=== PATIENT | female | born 1930 | race Caucasian/White ===

== ENCOUNTER 2017-10-31 11:31 | Inpatient (IN) | payer MEDICARE ==
[~2017-10-31] VITALS: Ht 160 cm; Wt 85.0 kg
[~2017-10-31 11:31] MED LIST: ASPI325T PO; ASPI325T24 PO; B12-1CHW INJ; CALCCHW25 PO; CALCIUM/D3; CALCTAB23 PO; CIME200 PO; CLIN1CAP6 PO; GLIM1 PO; LORTA5 PO; NIFE1TAB85 PO; OXYB5SYP PO; OXYB5TAB33 PO; PRAV80 PO; PRAV80TA PO; SYNT112T PO; TERA10CA3 PO; VITA100020 IM
[2017-10-31 12:01] VITALS: BP 99/55; PULSE 60; RESP 18; TEMP 97.8; O2SAT 91
[2017-10-31] MEDS ORDERED: GLIM1TAB PO (12:17)
[2017-10-31] MEDS ORDERED: PRAV40TA2 PO (12:17)
[2017-10-31] MEDS ORDERED: CINN500C2 PO (12:17)
[2017-10-31] MEDS ORDERED: CALC600C3 PO (12:17)
[2017-10-31] MEDS ORDERED: CYAN1000P SQ (12:17)
[2017-10-31] MEDS ORDERED: HYDR-3516 PO (12:17)
[2017-10-31] MEDS ORDERED: BIOT5TAB PO (12:17)
[2017-10-31] MEDS ORDERED: CLAR10CA3 PO (12:17)
[2017-10-31] MEDS ORDERED: ASPI-183 PO (12:17)
[2017-10-31] MEDS ORDERED: FURO20TA PO (12:17)
[2017-10-31] MEDS ORDERED: LEVO112T2 PO (12:17)
[2017-10-31] MEDS ORDERED: OXYB5TAB8 PO (12:17)
[2017-10-31] MEDS ORDERED: NIFE30TA61 PO (12:17)
[2017-10-31 12:39] VITALS: BP 101/56; PULSE 62; RESP 18; O2SAT 90
[2017-10-31 12:40] LABS: BASOPHIL # 0.4 TH/MM3 (0-0.2); BASOPHIL % 4.3 % (0.0-2.0); EOSINOPHIL # 0.1 TH/MM3 (0-0.4); EOSINOPHIL % 1.4 % (0.0-4.0); HEMATOCRIT 45.1 % (35.0-46.0); HEMOGLOBIN 14.6 GM/DL (11.6-15.3); LYMPH % 14.2 % (9.0-44.0); LYMPHOCYTE # 1.3 TH/MM3 (1.0-4.8); MEAN CELL VOLUME 89.4 FL (80.0-100.0); MEAN CORPUSCULAR HGB CONC 32.4 % (32.0-36.0); MEAN PLATELET VOLUME 9.9 FL (7.0-11.0); MONO % 6.6 % (0.0-8.0); MONOCYTE # 0.6 TH/MM3 (0-0.9); NEUT % 73.5 % (16.0-70.0); PLATELET COUNT 115 TH/MM3 (150-450); RED BLOOD COUNT 5.05 MIL/MM3 (4.00-5.30); RED CELL DISTRIBUTION WIDTH 14.3 % (11.6-17.2); WHITE BLOOD COUNT 9.4 TH/MM3 (4.0-11.0)
[2017-10-31] MEDS ORDERED: HYDROmorphone HCL PF 2 MG/ML VIAL IV PUSH ONE (12:45)
[2017-10-31] MEDS ORDERED: SODIUM CHLOR 0.9% 1000 ML INJ 1,000 ML IV ONE (12:45)
--- NOTE | 2017-10-31 12:49 | PD ---
HPI Chief Complaint: Abdominal Pain Time Seen by Provider: 12:29 Travel History International Travel<30 days: No Contact w/Intl Traveler<30days: No Traveled to known affect area: No History of Present Illness HPI This 87-year-old female is complaining of left lower quadrant pain. Been having some lower abdominal pain. She went to see Dr. Donahue and was told she had a colon infection. She was put on Keflex which she finished attending days worth yesterday. The last few days been having occasional diarrhea alternating with constipation. She has been having some left lower quadrant pain. The pain is aggravated by movement. Her appetite has been diminished. She has a history of cholecystectomy. She was treated for breast cancer 4 years ago. She had a lumpectomy followed by radiation treatment. She was told that chemotherapy was not needed at the time. She does smoke cigarettes. She drinks rarely. She says the pain she is having is quite severe. It is aggravated by getting up and moving when she sits she is pain is not too bad. The pain has been bad for the last 4 days. She lives alone [facility] Past Medical History Arthritis: Yes Asthma: No Blood Disorders: No Anxiety: No Depression: No Heart Rhythm Problems: No Cancer: Yes (BREAST) Cardiovascular Problems: No High Cholesterol: Yes Chemotherapy: No Chest Pain: No Congestive Heart Failure: No COPD: Yes Cerebrovascular Accident: No Coronary Artery Disease: Yes Diabetes: Yes Patient Takes Glucophage: No Diminished Hearing: No Endocrine: Yes Gastrointestinal Disorders: Yes GERD: Yes Genitourinary: Yes (STRESS INCONTINENCE ) Hepatitis: No Hiatal Hernia: No Hypertension: Yes Immune Disorder: No Kidney Stones: No Musculoskeletal: Yes (? LUMBAR SPINE BACK PAIN; ARTHRITIS BOTH KNEES) Neurologic: Yes (NEUROPATHY LEFT FOOT; ? RIGHT FOOT) Psychiatric: No Reproductive: No Respiratory: Yes (? COPD ) Immunizations Current: Yes Migraines: No Radiation Therapy: Yes Renal Failure: No Seizures: No Sickle Cell Disease: No Sleep Apnea: No Thyroid Disease: Yes Ulcer: Yes (GASTRIC) ?: Not Menopausal: Yes : 6 Para: 5 Miscarriage: 1 Tubal Ligation: Yes Past Surgical History Abdominal Aneurysm Repair: Yes Abdominal Surgery: Yes AICD: No Appendectomy: Yes Arteriovenous Shunt: No Cardiac Surgery: No Cholecystectomy: Yes Ear Surgery: No Endocrine Surgery: No Eye Surgery: No Genitourinary Surgery: No Gynecologic Surgery: Yes (LUMPECTOMY W/LYMPH NODE DISSECTION) Insulin Pump: No Joint Replacement: No Oral Surgery: No Pacemaker: No Thoracic Surgery: No Other Surgery: Yes (stent pacement for abdominal aortic anurism) Social History Alcohol Use: Yes (RARE) Tobacco Use: Yes (1/2 PPD) Substance Use: No Allergies-Medications (Allergen,Severity, Reaction): Coded Allergies: benazepril (Unverified Allergy, Severe, angioedema, 10/31/17) captopril (Unverified Allergy, Severe, angioedema, 10/31/17) enalaprilat (Unverified Allergy, Severe, angioedema, 10/31/17) fosinopril (Unverified Allergy, Severe, angioedema, 10/31/17) furosemide (Verified Allergy, Severe, VOMITING, 10/31/17) lisinopril (Unverified Allergy, Severe, SWELLING OF TONGUE, 10/31/17) PATIENT UNABLE TO TAKE ANY OTHER MEDICATION IN SAME FAMILY LISINOPRIL metformin (Verified Allergy, Severe, NAUSEA, 10/31/17) quinapril (Unverified Allergy, Severe, angioedema, 10/31/17) diclofenac (Unverified Allergy, Intermediate, Swelling, 10/31/17) PATIENT UNSURE WHICH NSAID CAUSED TONGUE SWELLING etodolac (Unverified Allergy, Intermediate, Swelling, 10/31/17) PATIENT UNSURE WHICH NSAID CAUSED TONGUE SWELLING flurbiprofen (Unverified Allergy, Intermediate, Swelling, 10/31/17) PATIENT UNSURE WHICH NSAID CAUSED TONGUE SWELLING ibuprofen (Unverified Allergy, Intermediate, Swelling, 10/31/17) PATIENT UNSURE WHICH NSAID CAUSED TONGUE SWELLING indomethacin (Unverified Allergy, Intermediate, Swelling, 10/31/17) PATIENT UNSURE WHICH NSAID CAUSED TONGUE SWELLING ketoprofen (Unverified Allergy, Intermediate, Swelling, 10/31/17) PATIENT UNSURE WHICH NSAID CAUSED TONGUE SWELLING ketorolac (Unverified Allergy, Intermediate, Swelling, 10/31/17) PATIENT UNSURE WHICH NSAID CAUSED TONGUE SWELLING morphine (Unverified Allergy, Intermediate, ITCHING, 10/31/17) PT DENIES naproxen (Unverified Allergy, Intermediate, Swelling, 10/31/17) PATIENT UNSURE WHICH NSAID CAUSED TONGUE SWELLING ondansetron (Unverified Allergy, Intermediate, ITCHING, 10/31/17) PT DENIES oxaprozin (Unverified Allergy, Intermediate, Swelling, 10/31/17) PATIENT UNSURE WHICH NSAID CAUSED TONGUE SWELLING Reported Meds & Prescriptions Reported Meds & Active Scripts Active Reported Pravastatin 40 Mg Tab 40 Mg PO DAILY Ditropan (Oxybutynin Chloride) 5 Mg Tab 5 Mg PO Q12HR Nifedipine ER 24 HR (Nifedipine) 30 Mg Tab 30 Mg PO DAILY Claritin (Loratadine) 10 Mg Cap 10 Mg PO DAILY Levothyroxine (Levothyroxine Sodium) 112 Mcg Tab 112 Mcg PO DAILY Glimepiride 1 Mg Tab 1 Mg PO DAILY Take with breakfast or first main meal Furosemide 20 Mg Tab 20 Mg PO DAILY Cyanocobalamin Inj (Cyanocobalamin) 1,000 Mcg/Ml Inj 1,000 Mcg SQ Q30D Eql Cinnamon (Cinnamon) 500 Mg Cap 1,000 Mg PO DAILY Calcium 600 + Vit D 400 Softgl (Calcium Carbonate/Vitamin D3) 600 Mg-400 Capsule 1 Cap PO DAILY Biotin 5 Mg Tab 5 Mg PO DAILY Aspirin 325 Mg Tab 325 Mg PO DAILY Hydrocodone-Acetamin 5-325 mg (Hydrocodone/Acetaminophen) 5 Mg-325 Mg Tablet 1- 2 Tab PO Q4HR PRN Review of Systems General / Constitutional: No: Fever, Chills Eyes: No: Diploplia, Blurred Vision HENT: No: Headaches Cardiovascular: No: Chest Pain or Discomfort, Palpitations Gastrointestinal: Positive: Nausea, Abdominal Pain, No: Vomiting Genitourinary: No: Urgency, Frequency Musculoskeletal: No: Myalgias Neurologic: Positive: Weakness Hematologic/Lymphatic: No: Easy Bruising Physical Exam Narrative GENERAL: Elderly female SKIN: Focused skin assessment warm/dry. HEAD: Atraumatic. Normocephalic. EYES: Pupils equal and round. No scleral icterus. No injection or drainage. ENT: No nasal bleeding or discharge. Mucous membranes pink and moist. NECK: Trachea midline. No JVD. CARDIOVASCULAR: Regular rate and rhythm. No murmur appreciated. RESPIRATORY: No accessory muscle use. Clear to auscultation. Breath sounds equal bilaterally. GASTROINTESTINAL: Abdomen soft, there is left lower quadrant tenderness with some local guarding nondistended. Hepatic and splenic margins not palpable. MUSCULOSKELETAL: No obvious deformities. No clubbing. No cyanosis. No edema. NEUROLOGICAL: Awake and alert. No obvious cranial nerve deficits. Motor grossly within normal limits. Normal speech. PSYCHIATRIC: Appropriate mood and affect; insight and judgment normal. Data Data Last Documented VS Vital Signs Date Time Temp Pulse Resp B/P (MAP) Pulse Ox O2 Delivery O2 Flow Rate FiO2 10/31/17 14:05 56 18 104/46 (65) 97 Nasal Cannula 2.00 10/31/17 12:01 97.8 Orders Orders Complete Blood Count With Diff (10/31/17 12:17) Comprehensive Metabolic Panel (10/31/17 12:17) Urinalysis - C+S If Indicated (10/31/17 12:17) Iv Access Insert/Monitor (10/31/17 12:17) Oxygen Administration (10/31/17 12:17) Oximetry (10/31/17 12:17) Lipase (10/31/17 12:17) Ct Abd/Pel W Iv Contrast(Rout) (10/31/17 12:44) Sodium Chlor 0.9% 1000 Ml Inj (Ns 1000 M (10/31/17 12:45) Hydromorphone Pf Inj (Dilaudid Pf Inj) (10/31/17 12:45) Potassium Chlor 10 Meq Premix (Kcl 10 Me (10/31/17 13:30) Iohexol 350 Inj (Omnipaque 350 Inj) (10/31/17 13:27) Admit Order (Ed Use Only) (10/31/17 14:55) Labs Laboratory Tests Test 10/31/17 12:30 White Blood Count 9.4 TH/MM3 Red Blood Count 5.05 MIL/MM3 Hemoglobin 14.6 GM/DL Hematocrit 45.1 % Mean Corpuscular Volume 89.4 FL Mean Corpuscular Hemoglobin 29.0 PG Mean Corpuscular Hemoglobin Concent 32.4 % Red Cell Distribution Width 14.3 % Platelet Count 115 TH/MM3 Mean Platelet Volume 9.9 FL Neutrophils (%) (Auto) 73.5 % Lymphocytes (%) (Auto) 14.2 % Monocytes (%) (Auto) 6.6 % Eosinophils (%) (Auto) 1.4 % Basophils (%) (Auto) 4.3 % Neutrophils # (Auto) 7.0 TH/MM3 Lymphocytes # (Auto) 1.3 TH/MM3 Monocytes # (Auto) 0.6 TH/MM3 Eosinophils # (Auto) 0.1 TH/MM3 Basophils # (Auto) 0.4 TH/MM3 CBC Comment DIFF FINAL Differential Comment Blood Urea Nitrogen 16 MG/DL Creatinine 1.00 MG/DL Random Glucose 150 MG/DL Total Protein 6.2 GM/DL Albumin 2.9 GM/DL Calcium Level 9.1 MG/DL Alkaline Phosphatase 78 U/L Aspartate Amino Transf (AST/SGOT) 17 U/L Alanine Aminotransferase (ALT/SGPT) 16 U/L Total Bilirubin 0.4 MG/DL Sodium Level 139 MEQ/L Potassium Level 3.2 MEQ/L Chloride Level 101 MEQ/L Carbon Dioxide Level 30.7 MEQ/L Anion Gap 7 MEQ/L Estimat Glomerular Filtration Rate 53 ML/MIN Lipase 62 U/L MDM Medical Decision Making Medical Screen Exam Complete: Yes Emergency Medical Condition: Yes Medical Record Reviewed: Yes Differential Diagnosis Differential diagnosis includes diverticulitis, gastroenteritis colitis Narrative Course Hemoglobin is 14 6 with a white count of 9.4. Lipase is 62. A CT scan was obtained. There is a low-density mass in the pancreatic body measuring approximately 3.8 cm this is suspicious for pancreatic neoplasm. There is a small volume of free fluid in the abdomen and pelvis along with stranding within the omentum suspicious for peritoneal disease. No liver lesions are noted. The pancreatic lesion encases and narrows the splenic artery and occludes the splenic vein. There is also a complex lesion coming from the right kidney. Patient was discussed with Dr. Banegas who feels she would be better served at the [facility]. She will be transferred there Diagnosis Primary Impression: Pancreatic mass Additional Impression: Abdominal pain Admitting Information Admitting Physician Requests: Admit Aleksandr Garner MD October 31, 2017 12:49
[2017-10-31 12:54] LABS: CHLORIDE 101 MEQ/L (98-107); SODIUM (NA) 139 MEQ/L (136-145)
[2017-10-31 12:57] LABS: CALCIUM 9.1 MG/DL (8.5-10.1)
[2017-10-31 12:58] LABS: ALBUMIN 2.9 GM/DL (3.4-5.0); BICARBONATE 30.7 MEQ/L (21.0-32.0); BLOOD UREA NITROGEN 16 MG/DL (7-18); GLUCOSE,RANDOM 150 MG/DL (74-106)
[2017-10-31 13:01] LABS: ALT (GPT) 16 U/L (10-53); AST (GOT) 17 U/L (15-37); GLOMERULAR FILTRATION RATE 53 ML/MIN (>89)
[2017-10-31 13:02] LABS: TOTAL BILIRUBIN ADULT 0.4 MG/DL (0.2-1.0); TOTAL PROTEIN 6.2 GM/DL (6.4-8.2)
[2017-10-31 13:04] LABS: ALKALINE PHOSPHATASE 78 U/L (45-117)
[2017-10-31] MEDS ORDERED: IOHEXOL 350 MG/ML 10 ML VIAL (for RAD DIAG) IVCONTRAST ONE (13:27)
[2017-10-31] MEDS ORDERED: POTASSIUM CHLOR 10 MEQ PREMIX 100 ML IV ONE (13:30)
--- NOTE | 2017-10-31 13:49 | RADRPT ---
EXAM DATE: 10/31/2017 1:30 PM EDT AGE/SEX: 87 years / Female INDICATIONS: Left lower quadrant pain. CLINICAL DATA: This is the patient's initial encounter. Patient reports that signs and symptoms have been present for 1 week and indicates a pain score of 5/10. MEDICAL/SURGICAL HISTORY: Carcinoma, breast. Gastroesophageal reflux disease. Hypertension. Diabetes. Abdominal aortic aneurysm repair. Cholecystectomy. Tubal ligation. Appendectomy. Orthop edic surgery. ORAL CONTRAST: No oral contrast ingested. RADIATION DOSE: 20.31 CTDI (mGy) COMPARISON: No prior [place] exams available for comparison. TECHNIQUE: Multiple contiguous axial images were obtained through the abdomen and pelvis following b olus infusion of 85 ml Omnipaque 350 (iohexol) nonionic water-soluble contrast as a single exam dos e. No oral contrast ingested. Using automated exposure control and adjustment of the mA and/or kV ac cording to patient size, the radiation dose was kept as low as reasonably achievable to obtain optima l diagnostic quality images. FINDINGS: Lower chest: No acute abnormality is identified. Hepatobiliary: No focal liver lesion is identified. The appearance suggests some degree of steatosis. The gallbladder is absent. Central intrahepatic bile ducts are mildly dilated and the distal common bile duct measures 11 mm. Kidneys: There is no hydronephrosis. A hyperdense heterogeneous 2 cm lesion arises from the right mid kidney at the anterior cortex. It does not meet criteria for a simple cyst. There is renal scarring at the lower pole the right kidney. A 5 mm nonobstructing stone is present in the left upper pole col lecting system. Adrenal Glands: Within normal limits. Spleen: Within normal limits. Pancreas: The pancreas is abnormal with a low-density masslike area in the proximal body measuring ap proximately 3.8 x 3.4 cm. The more peripheral pancreas is mildly atrophic with mild enlargement of th e peripheral duct. This abnormal low density encases the splenic artery and may occlude the splenic v ein. Vascular: There is severe atherosclerotic disease of the abdominal aorta. A endoluminal stent graft i s present extending from the juxtarenal position into the common iliac arteries bilaterally. The aneu rysm sac measures up to 6.7 x 6.0 cm and demonstrates areas of high density which appear to represent calcification. As described above, there is a pancreas mass which encases the splenic artery and lik farida occludes the splenic vein. There are perigastric collateral blood vessels present. Bowel/Mesentery: Stomach and small bowel demonstrate no acute finding. No acute colon abnormality is seen. There is a small volume of free fluid within the abdomen and pelvis and there is stranding of t he omentum. Abdominal Wall: No hernia is visualized. Retroperitoneum: No lymphadenopathy. Bladder: No wall thickening or mass. Reproductive: There is a small simple appearing cystic lesion in the left ovary measuring 12 mm. Uter us and right ovary demonstrate no acute finding. Inguinal: No lymphadenopathy or hernia. Musculoskeletal: No acute osseous abnormality is identified. There are degenerative changes of the chacho mbar spine with mild dextroscoliosis. CONCLUSION: 1. There is a low-density mass within the pancreatic body measuring approximately 3.8 cm. The imagin g features are suspicious for a pancreatic neoplasm. There is associated small volume of free fluid i n the abdomen and pelvis along with stranding within the omentum suspicious for peritoneal disease. N o liver lesions are identified. 2. The pancreas lesion is encasing and narrowing the splenic artery and occluding the splenic vein. As a result, there are perigastric collateral blood vessels. 3. Arising from the right mid kidney is a complex 2 cm lesion representing either a complex cystic l esion or solid mass/neoplasm. At some point this ideally should be further characterized. 4. Nonacute findings include severe atherosclerotic disease with prior endoluminal stent graft treat ment of an abdominal aortic aneurysm, 5 mm nonobstructing left renal stone, and mild enlargement of t he common bile duct in this patient post cholecystectomy. Electronically signed by: Tejinder Polo MD 10/31/2017 1:48 PM EDT
[2017-10-31 14:05] VITALS: BP 104/46; PULSE 56; RESP 18; O2SAT 97
[2017-10-31 15:30] VITALS: BP 103/56; PULSE 60; PULSE 82; RESP 18; O2SAT 95
[2017-10-31] MEDS ORDERED: NALOXONE HCL 0.4 MG/ML AMP IV PUSH PRN (16:00)
[2017-10-31] MEDS ORDERED: ACETAMINOPHEN 325 MG TAB PO PRN (16:00)
[2017-10-31] MEDS ORDERED: BISACODYL 10 MG SUPP RECTAL PRN (16:00)
[2017-10-31] MEDS ORDERED: SODIUM CHLORIDE 0.9% FLUSH 10 ML FLUSH IV FLUSH PRN (16:00)
[2017-10-31] MEDS ORDERED: MAGNESIUM HYDROXIDE SUSP 30 ML CUP PO PRN (16:00)
[2017-10-31] MEDS ORDERED: DEXTROSE 50% IN WATER 50 ML VIAL(D50) IV PUSH PRN (16:45)
[2017-10-31] MEDS ORDERED: HYDROmorphone HCL PF 0.5 MG/0.5 ML SYRINGE IV PUSH PRN (16:45)
[2017-10-31] MEDS ORDERED: GLUCAGON 1 MG/ML VIAL OTHER PRN (16:45)
[2017-10-31] MEDS: INSULIN ASPART SUPPLEMENTAL SCALE SQ SCH ×2 (17:00→20:07)
--- NOTE | 2017-10-31 17:18 | HHI.HP ---
HPI Service [facility] Hospitalists Primary Care Physician Gaby Donahue MD Admission Diagnosis ABDOMINAL PAIN, PANCREATIC MASS Chief Complaint: abd pain, constipation, decreased appetite Travel History International Travel<30 Days: No Contact w/Intl Traveler <30 Da: No Traveled to Known Affected Are: No History of Present Illness This 87-year-old female is complaining of left lower quadrant pain for the last 4 days she went to see Dr. Donahue and was told she had a colon infection. She was put on Keflex which she finished yesterday. She reportedly saw Dr. Donahue in his office this morning and was sent to the ER for further evaluation and CT scan. The last few days been having occasional diarrhea alternating with constipation. She has been having some left lower quadrant pain with no vomiting, but less appetite. The pain is aggravated by movement. She has a history of cholecystectomy. She was treated for breast cancer 4 years ago. She had a lumpectomy followed by radiation treatment. She was told that chemotherapy was not needed at the time. She does smoke cigarettes and has done so for nearly 70 years. She drinks rarely. She says the pain she is having is quite severe at times but seems controlled with Dilaudid she received earlier. It is aggravated by getting up and moving when she sits she is pain is not too bad. The pain has been bad for the last 4 days. She lives alone. CT abdomen pelvis done earlier today revealed 3.8 cm mass in the body of the pancreas narrowing splenic artery and occluding the splenic vein with some perigastric vessel engorgement. It is been requested the patient be transferred to the main hospital for further assessment. She has a long family history of various cancers. Review of Systems Constitutional: COMPLAINS OF: Fatigue, Weight loss, Change in appetite Eyes: DENIES: Blurred vision, Diplopia, Eye inflammation, Eye pain, Vision loss , Photosensitivity, Double Vision Ears, nose, mouth, throat: DENIES: Tinnitus, Hearing loss, Vertigo, Nasal discharge, Oral lesions, Throat pain, Hoarseness, Ear Pain, Running Nose, Epistaxis, Sinus Pain, Toothache, Odynophagia Respiratory: DENIES: Apneas, Cough, Snoring, Wheezing, Hemoptysis, Sputum production, Shortness of breath Cardiovascular: DENIES: Chest pain, Palpitations, Syncope, Dyspnea on Exertion , PND, Lower Extremity Edema, Orthopnea, Claudication Gastrointestinal: COMPLAINS OF: Abdominal pain, Constipation, Diarrhea, Nausea , DENIES: Black stools, Bloody stools, BRB per rectum, GERD, Reflux, Vomiting, Difficulty Swallowing, Anorexia, See HPI Musculoskeletal: COMPLAINS OF: Joint pain Hematologic/lymphatic: DENIES: Bruising, Lymphadenopathy Immunologic/allergic: DENIES: Eczema, Urticaria Psychiatric: COMPLAINS OF: Anxiety Past Family Social History Past Medical History Right-sided breast cancer Long-term tobacco use Diabetes type II with neuropathy Gastric ulcer Hypercholesterolemia GERD Hypertension Hypothyroidism Chronic lumbar pain Abdominal aortic aneurysm Coronary artery disease Overactive bladder Past Surgical History Cholecystectomy in her 30s Bilateral tubal ligation Appendectomy Right breast lumpectomy with lymph node dissection Abdominal aortic aneurysm repair with endograft stent Reported Medications Pravastatin 40 Mg Tab 40 Mg PO DAILY Ditropan (Oxybutynin Chloride) 5 Mg Tab 5 Mg PO Q12HR Nifedipine ER 24 HR (Nifedipine) 30 Mg Tab 30 Mg PO DAILY Claritin (Loratadine) 10 Mg Cap 10 Mg PO DAILY Levothyroxine (Levothyroxine Sodium) 112 Mcg Tab 112 Mcg PO DAILY Glimepiride 1 Mg Tab 1 Mg PO DAILY Take with breakfast or first main meal Furosemide 20 Mg Tab 20 Mg PO DAILY Cyanocobalamin Inj (Cyanocobalamin) 1,000 Mcg/Ml Inj 1,000 Mcg SQ Q30D Eql Cinnamon (Cinnamon) 500 Mg Cap 1,000 Mg PO DAILY Calcium 600 + Vit D 400 Softgl (Calcium Carbonate/Vitamin D3) 600 Mg-400 Capsule 1 Cap PO DAILY Biotin 5 Mg Tab 5 Mg PO DAILY Aspirin 325 Mg Tab 325 Mg PO DAILY Hydrocodone-Acetamin 5-325 mg (Hydrocodone/Acetaminophen) 5 Mg-325 Mg Tablet 1- 2 Tab PO Q4HR PRN Allergies: Coded Allergies: benazepril (Unverified Allergy, Severe, angioedema, 10/31/17) captopril (Unverified Allergy, Severe, angioedema, 10/31/17) enalaprilat (Unverified Allergy, Severe, angioedema, 10/31/17) fosinopril (Unverified Allergy, Severe, angioedema, 10/31/17) furosemide (Verified Allergy, Severe, VOMITING, 10/31/17) lisinopril (Unverified Allergy, Severe, SWELLING OF TONGUE, 10/31/17) PATIENT UNABLE TO TAKE ANY OTHER MEDICATION IN SAME FAMILY LISINOPRIL metformin (Verified Allergy, Severe, NAUSEA, 10/31/17) quinapril (Unverified Allergy, Severe, angioedema, 10/31/17) diclofenac (Unverified Allergy, Intermediate, Swelling, 10/31/17) PATIENT UNSURE WHICH NSAID CAUSED TONGUE SWELLING etodolac (Unverified Allergy, Intermediate, Swelling, 10/31/17) PATIENT UNSURE WHICH NSAID CAUSED TONGUE SWELLING flurbiprofen (Unverified Allergy, Intermediate, Swelling, 10/31/17) PATIENT UNSURE WHICH NSAID CAUSED TONGUE SWELLING ibuprofen (Unverified Allergy, Intermediate, Swelling, 10/31/17) PATIENT UNSURE WHICH NSAID CAUSED TONGUE SWELLING indomethacin (Unverified Allergy, Intermediate, Swelling, 10/31/17) PATIENT UNSURE WHICH NSAID CAUSED TONGUE SWELLING ketoprofen (Unverified Allergy, Intermediate, Swelling, 10/31/17) PATIENT UNSURE WHICH NSAID CAUSED TONGUE SWELLING ketorolac (Unverified Allergy, Intermediate, Swelling, 10/31/17) PATIENT UNSURE WHICH NSAID CAUSED TONGUE SWELLING morphine (Unverified Allergy, Intermediate, ITCHING, 10/31/17) PT DENIES naproxen (Unverified Allergy, Intermediate, Swelling, 10/31/17) PATIENT UNSURE WHICH NSAID CAUSED TONGUE SWELLING ondansetron (Unverified Allergy, Intermediate, ITCHING, 10/31/17) PT DENIES oxaprozin (Unverified Allergy, Intermediate, Swelling, 10/31/17) PATIENT UNSURE WHICH NSAID CAUSED TONGUE SWELLING Family History Mother and sister had ovarian cancer Brother had lung cancer Sister had breast cancer Daughter had thyroid cancer Father of abdominal aortic aneurysm at age 73 Social History Smokes half pack cigarettes per day and has done so for 70 years Rarely drinks alcohol Lives alone and is a since 1998 Had 5 children with a son who is local in [place] Worked for [employer] at [employer] and retired in 1994 Physical Exam Vital Signs Vital Signs Date Time Temp Pulse Resp B/P (MAP) Pulse Ox O2 Delivery O2 Flow Rate FiO2 10/31/17 15:53 Nasal Cannula 2.00 10/31/17 15:30 60 18 103/56 (72) 95 Nasal Cannula 2.00 10/31/17 14:05 56 18 104/46 (65) 97 Nasal Cannula 2.00 10/31/17 13:42 18 10/31/17 12:39 94 Nasal Cannula 2.00 10/31/17 12:39 62 18 101/56 (71) 90 Room Air 10/31/17 12:01 97.8 60 18 99/55 (70) 91 Physical Exam GENERAL: This is a well-nourished, well-developed patient, in no apparent distress. Slightly anxious. SKIN: No rashes, ecchymoses or lesions. Cool and dry. HEAD: Atraumatic. Normocephalic. No temporal or scalp tenderness. EYES: Pupils equal round and reactive. Extraocular motions intact. No scleral icterus. No injection or drainage. ENT: Nose without bleeding, purulent drainage or septal hematoma. Throat without erythema, tonsillar hypertrophy or exudate. Uvula midline. Airway patent. NECK: Trachea midline. No JVD or lymphadenopathy. Supple, nontender, no meningeal signs. CARDIOVASCULAR: Regular rate and rhythm without murmurs, gallops, or rubs. RESPIRATORY: Clear to auscultation. Breath sounds equal bilaterally. No wheezes , rales, or rhonchi. GASTROINTESTINAL: Abdomen soft, nondistended. No hepato-splenomegaly. No guarding or rebound. Tenderness palpation over left lower quadrant. No obvious bruit. MUSCULOSKELETAL: Extremities without clubbing, cyanosis, or edema. No joint tenderness, effusion, or edema noted. No calf tenderness. NEUROLOGICAL: Awake and alert. Cranial nerves II through XII intact. Motor and sensory grossly within normal limits. Five out of 5 muscle strength in all muscle groups. Normal speech. Laboratory Laboratory Tests Test 10/31/17 12:30 10/31/17 16:40 White Blood Count 9.4 Red Blood Count 5.05 Hemoglobin 14.6 Hematocrit 45.1 Mean Corpuscular Volume 89.4 Mean Corpuscular Hemoglobin 29.0 Mean Corpuscular Hemoglobin Concent 32.4 Red Cell Distribution Width 14.3 Platelet Count 115 Mean Platelet Volume 9.9 Neutrophils (%) (Auto) 73.5 Lymphocytes (%) (Auto) 14.2 Monocytes (%) (Auto) 6.6 Eosinophils (%) (Auto) 1.4 Basophils (%) (Auto) 4.3 Neutrophils # (Auto) 7.0 Lymphocytes # (Auto) 1.3 Monocytes # (Auto) 0.6 Eosinophils # (Auto) 0.1 Basophils # (Auto) 0.4 CBC Comment DIFF FINAL Differential Comment Blood Urea Nitrogen 16 Creatinine 1.00 Random Glucose 150 Total Protein 6.2 Albumin 2.9 Calcium Level 9.1 Alkaline Phosphatase 78 Aspartate Amino Transf (AST/SGOT) 17 Alanine Aminotransferase (ALT/SGPT) 16 Total Bilirubin 0.4 Sodium Level 139 Potassium Level 3.2 Chloride Level 101 Carbon Dioxide Level 30.7 Anion Gap 7 Estimat Glomerular Filtration Rate 53 Lipase 62 Result Diagram: 10/31/17 1230 10/31/17 1230 Imaging Last 72 hours Impressions Abdomen/Pelvis CT 10/31/17 1244 Signed Impressions: CONCLUSION: 1. There is a low-density mass within the pancreatic body measuring approximat farida 3.8 cm. The imaging features are suspicious for a pancreatic neoplasm. Ther e is associated small volume of free fluid in the abdomen and pelvis along with stranding within the omentum suspicious for peritoneal disease. No liver lesio ns are identified. 2. The pancreas lesion is encasing and narrowing the splenic artery and occlud ing the splenic vein. As a result, there are perigastric collateral blood vesse ls. 3. Arising from the right mid kidney is a complex 2 cm lesion representing eit her a complex cystic lesion or solid mass/neoplasm. At some point this ideally should be further characterized. 4. Nonacute findings include severe atherosclerotic disease with prior endolum inal stent graft treatment of an abdominal aortic aneurysm, 5 mm nonobstructing left renal stone, and mild enlargement of the common bile duct in this patient post cholecystectomy. Caprini VTE Risk Assessment Caprini VTE Risk Assessment: Mod/High Risk (score >= 2) Caprini Risk Assessment Model Point Value = 1 Point Value = 2 Point Value = 3 Point Value = 5 Age 41-60 Minor surgery BMI > 25 kg/m2 Swollen legs Varicose veins or History of unexplained or recurrent spontaneous Oral contraceptives or hormone replacement Sepsis (< 1 month) Serious lung disease, including pneumonia (< 1 month) Abnormal pulmonary function Acute myocardial infarction Congestive heart failure (< 1 month) History of inflammatory bowel disease Medical patient at bed rest Age 61-74 Arthroscopic surgery Major open surgery (> 45 min) Laparoscopic surgery (> 45 min) Malignancy Confined to bed (> 72 hours) Immobilizing plaster cast Central venous access Age >= 75 History of VTE Family history of VTE Factor V Leiden Prothrombin [id number] Lupus anticoagulant Anticardiolipin antibodies Elevated serum homocysteine Heparin-induced thrombocytopenia Other congenital or acquired thrombophilia Stroke (< 1 month) Elective arthroplasty Hip, pelvis, or leg fracture Acute spinal cord injury (< 1 month) Prophylaxis Regimen Total Risk Factor Score Risk Level Prophylaxis Regimen 0-1 Low Early ambulation 2 Moderate Order ONE of the following: *Sequential Compression Device (SCD) *Heparin 5000 units SQ BID 3-4 Higher Order ONE of the following medications: *Heparin 5000 units SQ TID *Enoxaparin/Lovenox 40 mg SQ daily (WT < 150 kg, CrCl > 30 mL/min) *Enoxaparin/Lovenox 30 mg SQ daily (WT < 150 kg, CrCl > 10-29 mL/min) *Enoxaparin/Lovenox 30 mg SQ BID (WT < 150 kg, CrCl > 30 mL/min) AND/OR *Sequential Compression Device (SCD) 5 or more Highest Order ONE of the following medications: *Heparin 5000 units SQ TID (Preferred with Epidurals) *Enoxaparin/Lovenox 40 mg SQ daily (WT < 150 kg, CrCl > 30 mL/min) *Enoxaparin/Lovenox 30 mg SQ daily (WT < 150 kg, CrCl > 10-29 mL/min) *Enoxaparin/Lovenox 30 mg SQ BID (WT < 150 kg, CrCl > 30 mL/min) AND *Sequential Compression Device (SCD) Assessment and Plan Problem List: (1) Pancreatic mass ICD Codes: K86.9 - Disease of pancreas, unspecified Status: Acute Plan: Transfer to [facility] and have GI see patient per apparent GI request Continue pain medication. Labs ordered. Possible malignancy. Patient is aware. (2) Hypertension ICD Codes: I10 - Essential (primary) hypertension Status: Chronic Plan: Continue medication as tolerated (3) Hyperlipidemia ICD Codes: E78.5 - Hyperlipidemia, unspecified Status: Chronic Plan: Outpatient medication. Likely not of significance acutely. (4) GERD (gastroesophageal reflux disease) ICD Codes: K21.9 - Gastro-esophageal reflux disease without esophagitis Status: Chronic Plan: Continue PPI (5) Diabetes with neurologic complications ICD Codes: E11.49 - Type 2 diabetes mellitus with other diabetic neurological complication Status: Chronic Plan: Diabetic diet with insulin sliding scale coverage Code Status Full Discussed Condition With Patient and ER provider as well as Dr. Briseno Physician Certification 2 Midnight Certification Type: Admission for Inpatient Services Order for Inpatient Services The services are ordered in accordance with Medicare regulations or non- Medicare payer requirements, as applicable. In the case of services not specified as inpatient-only, they are appropriately provided as inpatient services in accordance with the 2-midnight benchmark. Estimated LOS (days): 3 days is the estimated time the patient will need to remain in the hospital, assuming treatment plan goals are met and no additional complications. Post-Hospital Plan: Not yet determined Problem Qualifiers (1) Hypertension: Qualified Codes: I10 - Essential (primary) hypertension (2) Diabetes with neurologic complications: Misael Okeefe MD PhD October 31, 2017 17:18
[2017-10-31 20:00] VITALS: BP 128/60; PULSE 55; RESP 20; TEMP 97.4; O2SAT 92
[2017-10-31] MEDS: DOCUSATE SODIUM 50 MG/SENNA 8.6 MG TAB PO SCH (21:00)
[2017-10-31] MEDS: OXYBUTYNIN CHLORIDE 5 MG TAB PO SCH (21:01)
[2017-10-31] MEDS: SODIUM CHLORIDE 0.9% FLUSH 10 ML FLUSH IV FLUSH SCH (21:01)
[2017-10-31] MEDS: ACETAMINOPHEN/HYDROcodone 325 MG/5 MG TAB PO PRN (21:09)
[2017-10-31 21:34] LABS: CARCINOEMBRYONIC ANTIGEN 3.3 NG/ML (0.2-5.0)
[2017-11-01] VITALS (8 sets, daily range): BP systolic 105–126; BP diastolic 53–56; PULSE 51–94; RESP 16–22; TEMP 97.7–98.2; O2SAT 90–95
[2017-11-01 01:58] LABS: CA 19-9 828.1 U/ML (0.0-35.0)
[2017-11-01] MEDS: ACETAMINOPHEN/HYDROcodone 325 MG/5 MG TAB PO PRN ×3 (03:09→18:27)
[2017-11-01] MEDS: LEVOTHYROXINE SODIUM 112 MCG TAB PO SCH (05:27)
[2017-11-01] MEDS: INSULIN ASPART SUPPLEMENTAL SCALE SQ SCH ×5 (08:00→21:00)
[2017-11-01] MEDS: SODIUM CHLORIDE 0.9% FLUSH 10 ML FLUSH IV FLUSH SCH ×2 (08:12→21:32)
[2017-11-01] MEDS: LORATADINE 10 MG TAB PO SCH (08:13)
[2017-11-01] MEDS: DOCUSATE SODIUM 50 MG/SENNA 8.6 MG TAB PO SCH ×2 (08:13→21:32)
[2017-11-01] MEDS: OXYBUTYNIN CHLORIDE 5 MG TAB PO SCH ×2 (08:13→21:32)
[2017-11-01] MEDS: PANTOPRAZOLE SOD 40 MG DELAYED RELEASE TAB PO SCH (08:13)
[2017-11-01] MEDS: NIFEdipine 30 MG SUSTAINED RELEASE TAB PO SCH (08:13)
[2017-11-01 08:28] LABS: AUTOMATED NEUTROPHIL # 4.7 TH/MM3 (1.8-7.7); BASOPHIL # 0.1 TH/MM3 (0-0.2); BASOPHIL % 0.9 % (0.0-2.0); EOSINOPHIL # 0.2 TH/MM3 (0-0.4); EOSINOPHIL % 2.8 % (0.0-4.0); HEMATOCRIT 43.9 % (35.0-46.0); HEMOGLOBIN 14.5 GM/DL (11.6-15.3); LYMPH % 22.5 % (9.0-44.0); LYMPHOCYTE # 1.6 TH/MM3 (1.0-4.8); MEAN CELL VOLUME 89.5 FL (80.0-100.0); MEAN CORPUSCULAR HEMOGLOBIN 29.7 PG (27.0-34.0); MEAN CORPUSCULAR HGB CONC 33.1 % (32.0-36.0); MEAN PLATELET VOLUME 9.8 FL (7.0-11.0); MONO % 7.5 % (0.0-8.0); MONOCYTE # 0.5 TH/MM3 (0-0.9); NEUT % 66.3 % (16.0-70.0); PLATELET COUNT 105 TH/MM3 (150-450); RED CELL DISTRIBUTION WIDTH 14.7 % (11.6-17.2); WHITE BLOOD COUNT 7.1 TH/MM3 (4.0-11.0)
[2017-11-01 08:58] LABS: ALBUMIN 2.7 GM/DL (3.4-5.0); ALT (GPT) 16 U/L (10-53); AST (GOT) 20 U/L (15-37); BICARBONATE 31.4 MEQ/L (21.0-32.0); BLOOD UREA NITROGEN 11 MG/DL (7-18); CALCIUM 8.4 MG/DL (8.5-10.1); CHLORIDE 103 MEQ/L (98-107); CREATININE 0.83 MG/DL (0.50-1.00); GLOMERULAR FILTRATION RATE 65 ML/MIN (>89); GLUCOSE,RANDOM 91 MG/DL (74-106); SODIUM (NA) 142 MEQ/L (136-145)
[2017-11-01 09:01] LABS: ALKALINE PHOSPHATASE 75 U/L (45-117); TOTAL BILIRUBIN ADULT 0.5 MG/DL (0.2-1.0); TOTAL PROTEIN 5.6 GM/DL (6.4-8.2)
--- NOTE | 2017-11-01 09:05 | PD.CONS ---
HPI History of Present Illness This is a 87 year old F with PMH significant for R sided breast cancer S/P lumpectomy and radiation, DM, gastric ulcer, hyperlipidemia, GERD, HTN, hypothyroidism, chronic lumbar pain, AAA, CAD, overactive bladder, and significant family history for multiple types of cancer. Pt reports seeing her PCP a few weeks ago for a pressure in her groins, states she was started on ten days of Keflex for a "colon infection" which she finished last Monday. Pt states on Monday morning she began having a pain in her LLQ which was exacerbated by movement and bowel movements. Her bowel movements have been alternating between constipation and diarrhea since starting the Keflex, states she did take Dulcolax once for the constipation but denies any other OTC treatments. She went back to see her PCP yesterday who told her to go to the ER for further work up. CT scan in the ER revealed mass within the pancreatic body , pancreas lesion encasing and narrowing the splenic aretery and occluding the splenic vein with perigastric collateral blood vessels. Our service has been consulted to further evaluate. Denies nausea, vomiting, acid reflux, heartburn , abdominal pain other than the pains in her LLQ, unintentional weight loss, blood in her stool. States her last EGD and colonoscopy were done here, records reviewed found EGD and colonoscopy from 2002, findings revealed possible distal esophageal stricture S/P dilatation, severe nodularity and erythema in the stomach, and one polyp in the rectum. Reports rare ETOH, only on special occasions. Spoke half a pack of cigarettes daily, has been spoking since 17 years old. Denies illicit drug use. (Nadia Lopez) PFSH Past Medical History R sided breast cancer S/P lumpectomy and radiation Long-term tobacco use DM Neuropathy Gastritis Colon polyp HTN Hypothyroidism AAA CAD Overactive bladder Hyperlipidemia Past Surgical History Appendectomy Cholecystectomy Lumpectomy AAA repair with endograft stent Tubal ligation Colonoscopy EGD Rectum repair after giving (Nadia Lopez) Coded Allergies: benazepril (Unverified Allergy, Severe, angioedema, 10/31/17) captopril (Unverified Allergy, Severe, angioedema, 10/31/17) enalaprilat (Unverified Allergy, Severe, angioedema, 10/31/17) fosinopril (Unverified Allergy, Severe, angioedema, 10/31/17) furosemide (Verified Allergy, Severe, VOMITING, 10/31/17) lisinopril (Unverified Allergy, Severe, SWELLING OF TONGUE, 10/31/17) PATIENT UNABLE TO TAKE ANY OTHER MEDICATION IN SAME FAMILY LISINOPRIL metformin (Verified Allergy, Severe, NAUSEA, 10/31/17) quinapril (Unverified Allergy, Severe, angioedema, 10/31/17) diclofenac (Unverified Allergy, Intermediate, Swelling, 10/31/17) PATIENT UNSURE WHICH NSAID CAUSED TONGUE SWELLING etodolac (Unverified Allergy, Intermediate, Swelling, 10/31/17) PATIENT UNSURE WHICH NSAID CAUSED TONGUE SWELLING flurbiprofen (Unverified Allergy, Intermediate, Swelling, 10/31/17) PATIENT UNSURE WHICH NSAID CAUSED TONGUE SWELLING ibuprofen (Unverified Allergy, Intermediate, Swelling, 10/31/17) PATIENT UNSURE WHICH NSAID CAUSED TONGUE SWELLING indomethacin (Unverified Allergy, Intermediate, Swelling, 10/31/17) PATIENT UNSURE WHICH NSAID CAUSED TONGUE SWELLING ketoprofen (Unverified Allergy, Intermediate, Swelling, 10/31/17) PATIENT UNSURE WHICH NSAID CAUSED TONGUE SWELLING ketorolac (Unverified Allergy, Intermediate, Swelling, 10/31/17) PATIENT UNSURE WHICH NSAID CAUSED TONGUE SWELLING morphine (Unverified Allergy, Intermediate, ITCHING, 10/31/17) PT DENIES naproxen (Unverified Allergy, Intermediate, Swelling, 10/31/17) PATIENT UNSURE WHICH NSAID CAUSED TONGUE SWELLING ondansetron (Unverified Allergy, Intermediate, ITCHING, 10/31/17) PT DENIES oxaprozin (Unverified Allergy, Intermediate, Swelling, 10/31/17) PATIENT UNSURE WHICH NSAID CAUSED TONGUE SWELLING Family History Family history significant for multiple types of cancer including breast, lung, ovarian, and thyroid Social History ETOH only on special occasional Smokes 1/2 PPD- smoking since 17 years old Denies illicit drug use (Nadia Lopez) Review of Systems Gastrointestinal: COMPLAINS OF: Abdominal pain, Constipation, Diarrhea, DENIES : Black stools, Bloody stools, Nausea, Vomiting, Difficulty Swallowing, Odynophagia, Swelling of Abdomen, Heartburn, Hematemesis (Nadia Lopez) GI Exam Vitals I&O Vital Signs Date Time Temp Pulse Resp B/P (MAP) Pulse Ox O2 Delivery O2 Flow Rate FiO2 11/01/17 04:00 97.7 58 20 125/53 (77) 92 11/01/17 00:00 97.8 53 22 115/54 (74) 95 10/31/17 20:00 97.4 55 20 128/60 (82) 92 10/31/17 17:31 10/31/17 15:53 Nasal Cannula 2.00 10/31/17 15:30 60 18 103/56 (72) 95 Nasal Cannula 2.00 10/31/17 14:05 56 18 104/46 (65) 97 Nasal Cannula 2.00 10/31/17 13:42 18 10/31/17 12:39 94 Nasal Cannula 2.00 10/31/17 12:39 62 18 101/56 (71) 90 Room Air 10/31/17 12:01 97.8 60 18 99/55 (70) 91 I/O 10/31/17 10/31/17 10/31/17 11/01/17 11/01/17 11/01/17 07:00 15:00 23:00 07:00 15:00 23:00 Intake Total 100 ml 180 ml Output Total 150 ml Balance -50 ml 180 ml Intake Oral 180 ml IV Total 100 ml Output Urine Total 150 ml # Voids 2 3 Imaging Last Impressions Abdomen/Pelvis CT 10/31/17 1244 Signed Impressions: CONCLUSION: 1. There is a low-density mass within the pancreatic body measuring approximat farida 3.8 cm. The imaging features are suspicious for a pancreatic neoplasm. Ther e is associated small volume of free fluid in the abdomen and pelvis along with stranding within the omentum suspicious for peritoneal disease. No liver lesio ns are identified. 2. The pancreas lesion is encasing and narrowing the splenic artery and occlud ing the splenic vein. As a result, there are perigastric collateral blood vesse ls. 3. Arising from the right mid kidney is a complex 2 cm lesion representing eit her a complex cystic lesion or solid mass/neoplasm. At some point this ideally should be further characterized. 4. Nonacute findings include severe atherosclerotic disease with prior endolum inal stent graft treatment of an abdominal aortic aneurysm, 5 mm nonobstructing left renal stone, and mild enlargement of the common bile duct in this patient post cholecystectomy. Laboratory Test 10/31/17 12:30 10/31/17 16:40 11/01/17 07:50 White Blood Count 9.4 TH/MM3 7.1 TH/MM3 Red Blood Count 5.05 MIL/MM3 4.90 MIL/MM3 Hemoglobin 14.6 GM/DL 14.5 GM/DL Hematocrit 45.1 % 43.9 % Mean Corpuscular Volume 89.4 FL 89.5 FL Mean Corpuscular Hemoglobin 29.0 PG 29.7 PG Mean Corpuscular Hemoglobin Concent 32.4 % 33.1 % Red Cell Distribution Width 14.3 % 14.7 % Platelet Count 115 TH/MM3 105 TH/MM3 Mean Platelet Volume 9.9 FL 9.8 FL Neutrophils (%) (Auto) 73.5 % 66.3 % Lymphocytes (%) (Auto) 14.2 % 22.5 % Monocytes (%) (Auto) 6.6 % 7.5 % Eosinophils (%) (Auto) 1.4 % 2.8 % Basophils (%) (Auto) 4.3 % 0.9 % Neutrophils # (Auto) 7.0 TH/MM3 4.7 TH/MM3 Lymphocytes # (Auto) 1.3 TH/MM3 1.6 TH/MM3 Monocytes # (Auto) 0.6 TH/MM3 0.5 TH/MM3 Eosinophils # (Auto) 0.1 TH/MM3 0.2 TH/MM3 Basophils # (Auto) 0.4 TH/MM3 0.1 TH/MM3 CBC Comment DIFF FINAL DIFF FINAL Differential Comment Blood Urea Nitrogen 16 MG/DL Creatinine 1.00 MG/DL Random Glucose 150 MG/DL Total Protein 6.2 GM/DL Albumin 2.9 GM/DL Calcium Level 9.1 MG/DL Alkaline Phosphatase 78 U/L Aspartate Amino Transf (AST/SGOT) 17 U/L Alanine Aminotransferase (ALT/SGPT) 16 U/L Total Bilirubin 0.4 MG/DL Sodium Level 139 MEQ/L Potassium Level 3.2 MEQ/L Chloride Level 101 MEQ/L Carbon Dioxide Level 30.7 MEQ/L Anion Gap 7 MEQ/L Estimat Glomerular Filtration Rate 53 ML/MIN Lipase 62 U/L Tumor Marker Alpha Fetoprotein 2.7 NG/ML Carcinoembryonic Antigen 3.3 NG/ML CA 19-9 Antigen 828.1 U/ML Physical Examination HEENT: Normocephalic; atraumatic CHEST: Even/unlabored CARDIAC: RRR ABDOMEN: Round, soft, LLQ tenderness, bowel sounds active EXTREMITIES: No clubbing, cyanosis, or edema. SKIN: Normal; no rash; no jaundice. CHANNELING MACHINE RUNNER: Alert and oriented times three. (Nadia Lopez) Assessment and Plan Plan Assessment: - Pancreatic mass seen on imaging with elevated CA 19-9 CT abdomen and pelvis W IV contrast (10/31) --> There is a low-density mass within the pancreatic body measuring approximately 3.8 cm. The imaging features are suspicious for a pancreatic neoplasm. There is associated small volume of free fluid in the abdomen and pelvis along with stranding within the omentum suspicious for peritoneal disease. No liver lesions are identified. The pancreas lesion is encasing and narrowing the splenic artery and occluding the splenic vein. As a result, there are perigastric collateral blood vessels. Arising from the right mid kidney is a complex 2 cm lesion representing either a complex cystic lesion or solid mass/ neoplasm. At some point this ideally should be further characterized. CA 19-9- 828.1 CEA-3.3 Rare ETOH. Smoke 1/2 PPD, has been smoking since 17 years old. Denies history of pancreatitis. Family history significant for multiple types of cancer. Complaining of: Alternating constipation and diarrhea, LLQ abdominal pain worse with BMs and movement Denies: Abdominal pain other than LLQ, nausea, vomiting, acid reflux, heartburn, unintentional weight loss Plan: EUS with FNA tomorrow Obtain consent NPO after MN GS consult Monitor labs Supportive care Further recommendations based on findings of above Pt has been seen and examined by myself and Dr. Rosales and this note is written on his behalf (Nadia Lopez) Physician Comments Seen and examined with JON, Still with groin discomfort. EUS planned for tomorrow. Colonoscopy monday.Thank you (Quoc Rosales MD) Nadia Lopez November 01, 2017 09:05 Quoc Rosales MD November 01, 2017 16:19
--- NOTE | 2017-11-01 10:52 | HHI.PR ---
Subjective Remarks in chair no distress Objective Vitals heent neg heart reg lung cta abd s/nt/ ext no edema Vital Signs Date Time Temp Pulse Resp B/P (MAP) Pulse Ox O2 Delivery O2 Flow Rate FiO2 11/01/17 09:50 93 21 11/01/17 08:00 98.0 51 18 116/55 (75) 91 11/01/17 04:00 97.7 58 20 125/53 (77) 92 11/01/17 00:00 97.8 53 22 115/54 (74) 95 10/31/17 20:00 97.4 55 20 128/60 (82) 92 10/31/17 17:31 10/31/17 15:53 Nasal Cannula 2.00 10/31/17 15:30 60 18 103/56 (72) 95 Nasal Cannula 2.00 10/31/17 14:05 56 18 104/46 (65) 97 Nasal Cannula 2.00 10/31/17 13:42 18 10/31/17 12:39 94 Nasal Cannula 2.00 10/31/17 12:39 62 18 101/56 (71) 90 Room Air 10/31/17 12:01 97.8 60 18 99/55 (70) 91 Result Diagram: 11/01/17 0750 11/01/17 0750 Imaging Last 72 hours Impressions Abdomen/Pelvis CT 10/31/17 1244 Signed Impressions: CONCLUSION: 1. There is a low-density mass within the pancreatic body measuring approximat farida 3.8 cm. The imaging features are suspicious for a pancreatic neoplasm. Ther e is associated small volume of free fluid in the abdomen and pelvis along with stranding within the omentum suspicious for peritoneal disease. No liver lesio ns are identified. 2. The pancreas lesion is encasing and narrowing the splenic artery and occlud ing the splenic vein. As a result, there are perigastric collateral blood vesse ls. 3. Arising from the right mid kidney is a complex 2 cm lesion representing eit her a complex cystic lesion or solid mass/neoplasm. At some point this ideally should be further characterized. 4. Nonacute findings include severe atherosclerotic disease with prior endolum inal stent graft treatment of an abdominal aortic aneurysm, 5 mm nonobstructing left renal stone, and mild enlargement of the common bile duct in this patient post cholecystectomy. A/P Problem List: (1) Pancreatic mass ICD Codes: K86.9 - Disease of pancreas, unspecified Status: Acute Plan: 1. 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 right kidney mass could be solid vs cystic long discussion with pt. She wants to proceed with EUS and bx for diagnosis. She realizes that it will be nonoperable and likely comfort care pain control dvt prophylaxis CT abd/pelvis 10/31 1. There is a low-density mass within the pancreatic body measuring approximately 3.8 cm. The imaging features are suspicious for a pancreatic neoplasm. There is associated small volume of free fluid in the abdomen and pelvis along with stranding within the omentum suspicious for peritoneal disease. No liver lesions are identified. 2. The pancreas lesion is encasing and narrowing the splenic artery and occluding the splenic vein. As a result, there are perigastric collateral blood vessels. 3. Arising from the right mid kidney is a complex 2 cm lesion representing either a complex cystic lesion or solid mass/neoplasm. At some point this ideally should be further characterized. 4. Nonacute findings include severe atherosclerotic disease with prior endoluminal stent graft treatment of an abdominal aortic aneurysm, 5 mm nonobstructing left renal stone, and mild enlargement of the common bile duct in this patient post cholecystectomy. 2. dm 2 3. gerd 4. htn 5. hypothyroidism 6. 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
[2017-11-01] MEDS ORDERED: LACTATED RINGER'S 1000 ML IV PRN (11:15)
[2017-11-01] MEDS ORDERED: CHLORHEXIDINE GLUCONATE 2 % 1 PACK (2 CLOTHS) TOPICAL PRN (11:15)
[2017-11-01] MEDS ORDERED: SODIUM CHLORID 0.9% 500 ML IV PRN (11:15)
[2017-11-01] MEDS ORDERED: METOPROLOL TARTRATE 25 MG TAB PO PRN (11:15)
[2017-11-01] MEDS ORDERED: POVIDONE IODINE 5% (ANTISEPSIS KIT) 4 APPLICATIONS EACH NARE PRN (11:15)
[2017-11-01 13:32] LABS: PROTHROMBIN TIME - PATIENT 9.8 SEC (9.8-11.6)
--- NOTE | 2017-11-01 13:48 | EKG ---
Date Performed: 11/01/2017 Time Performed: 12:02:20 PTAGE: 87 years EKG: SINUS BRADYCARDIA BORDERLINE ECG PREVIOUS TRACING : 07/22/2013 13.15 DOCTOR: Ambrose Warner Interpretating Date/Time 11/01/2017 13:47:47
[2017-11-01 14:26] LABS: BILIRUBIN, URINE NEG (NEG); BLOOD, URINE NEG (NEG); GLUCOSE,URINE NEG (NEG); KETONE, URINE NEG (NEG); NITRITE,URINE NEG (NEG); PH, URINE 6.5 (5.0-8.5); SQUAMOUS EPITHELIAL CELL URINE 5 /hpf (0-5); TRANSITIONAL EPI CELLS, URINE <1 /hpf; URINE COLOR YELLOW (YELLW/STRAW); URINE LEUKOCYTE ESTERASE SMALL (NEG)
[2017-11-02] VITALS (8 sets, daily range): BP systolic 112–140; BP diastolic 56–63; PULSE 48–66; RESP 16–19; TEMP 97–98.2; O2SAT 92–98
[2017-11-02] MEDS: LEVOTHYROXINE SODIUM 112 MCG TAB PO SCH (06:34)
[2017-11-02 07:07] LABS: AUTOMATED NEUTROPHIL # 5.1 TH/MM3 (1.8-7.7); BASOPHIL # 0.1 TH/MM3 (0-0.2); BASOPHIL % 0.8 % (0.0-2.0); EOSINOPHIL # 0.2 TH/MM3 (0-0.4); EOSINOPHIL % 2.5 % (0.0-4.0); HEMATOCRIT 43.9 % (35.0-46.0); HEMOGLOBIN 14.3 GM/DL (11.6-15.3); LYMPH % 17.9 % (9.0-44.0); LYMPHOCYTE # 1.3 TH/MM3 (1.0-4.8); MEAN CELL VOLUME 90.2 FL (80.0-100.0); MEAN CORPUSCULAR HEMOGLOBIN 29.4 PG (27.0-34.0); MEAN CORPUSCULAR HGB CONC 32.6 % (32.0-36.0); MEAN PLATELET VOLUME 10.4 FL (7.0-11.0); MONO % 7.4 % (0.0-8.0); MONOCYTE # 0.5 TH/MM3 (0-0.9); NEUT % 71.4 % (16.0-70.0); PLATELET COUNT 109 TH/MM3 (150-450); RED BLOOD COUNT 4.87 MIL/MM3 (4.00-5.30); RED CELL DISTRIBUTION WIDTH 14.3 % (11.6-17.2); WHITE BLOOD COUNT 7.1 TH/MM3 (4.0-11.0)
[2017-11-02 07:17] LABS: BICARBONATE 28.5 MEQ/L (21.0-32.0); CALCIUM 8.8 MG/DL (8.5-10.1); CREATININE 1.04 MG/DL (0.50-1.00)
[2017-11-02] MEDS: INSULIN ASPART SUPPLEMENTAL SCALE SQ SCH ×4 (07:30→21:16)
[2017-11-02] MEDS: DOCUSATE SODIUM 50 MG/SENNA 8.6 MG TAB PO SCH ×3 (07:59→21:15)
[2017-11-02] MEDS: NIFEdipine 30 MG SUSTAINED RELEASE TAB PO SCH (07:59)
[2017-11-02] MEDS: SODIUM CHLORIDE 0.9% FLUSH 10 ML FLUSH IV FLUSH SCH ×2 (08:00→21:15)
[2017-11-02] MEDS: OXYBUTYNIN CHLORIDE 5 MG TAB PO SCH ×2 (08:07→21:15)
[2017-11-02] MEDS: PANTOPRAZOLE SOD 40 MG DELAYED RELEASE TAB PO SCH (08:07)
[2017-11-02] MEDS: LORATADINE 10 MG TAB PO SCH (08:07)
[2017-11-02] MEDS: ACETAMINOPHEN/HYDROcodone 325 MG/5 MG TAB PO PRN ×3 (08:08→16:13)
--- NOTE | 2017-11-02 10:47 | PD.PROCEDR ---
GI Procedure PROCEDURE PERFORMED EUS with FNA INDICATION FOR PROCEDURE Pancreatic mass PROCEDURE: The procedure, risks and benefits were discussed with Patient/POA and informed consent was obtained. Anesthesia sedated Patient with Diprivan. Patient was placed in the left lateral decubitus position. Endoscopic ultrasound: The Pentax videoscope was introduced through the oropharynx and advanced to the second portion of the duodenum. FINDINGS: There was a ill-defined hypoechoic mass mainly in the pancreatic body that seems to be invading the splenic vein FNA was performed with good return No obvious lymphadenopathy was noted ESTIMATED BLOOD LOSS: None SPECIMENS REMOVED: Fine-needle aspiration of the pancreatic body mass COMPLICATIONS: None IMPRESSION: Pancreatic mass seems to be invading the vascular structures PLAN: Await biopsies Supportive care Mahesh Lopez MD November 02, 2017 10:47
[2017-11-02] MEDS ORDERED: PROPOFOL 200 MG/20 ML AMP IV ONE (12:00)
[2017-11-02] MEDS ORDERED: LIDOCAINE HCL 1% PF 5 ML SYRINGE OTHER ONE (12:00)
--- NOTE | 2017-11-02 13:38 | HHI.DCPOC ---
Discharge Care Plan Diagnosis: (1) Pancreatic mass (2) Diabetes with neurologic complications (3) GERD (gastroesophageal reflux disease) (4) Hyperlipidemia (5) Hypertension (6) Abdominal pain Goals to Promote Your Health - Resume your Lasix on 11/04/17 as long as your blood pressure is over 120 systolic - Appt scheduled for 11/07/17 @ 10:00AM at [facility] in [place] with Dr. Lopez for pathology results from the biopsy - Followup with Dr. Jacobsen in 2 weeks, call for an appt. - Followup with your PCP, Dr. Donahue, in 1 week, call for an appt Directions to Meet Your Goals Take your medications as prescribed Follow your dietary instruction Follow activity as directed Keep your appointments as scheduled Take your immunizations and boosters as scheduled If your symptoms worsen call your PCP, if no PCP go to Urgent Care Center or Emergency Room Smoking is Dangerous to Your Health. Avoid second hand smoke Call the 24-hour hour crisis hotline for domestic abuse at Ella Valencia November 02, 2017 13:38
--- NOTE | 2017-11-02 15:17 | PD.CONS ---
[facility] Service General Surgery Consult Requested By Dr. Okeefe Reason for Consult Pancreatic mass Primary Care Physician Gaby Donahue MD History of Present Illness 87 yo F with LLQ abdominal pain x 4 days found to have pancreatic mass. Past Family Social History Allergies: Coded Allergies: benazepril (Unverified Allergy, Severe, angioedema, 10/31/17) captopril (Unverified Allergy, Severe, angioedema, 10/31/17) enalaprilat (Unverified Allergy, Severe, angioedema, 10/31/17) fosinopril (Unverified Allergy, Severe, angioedema, 10/31/17) furosemide (Verified Allergy, Severe, VOMITING, 10/31/17) lisinopril (Unverified Allergy, Severe, SWELLING OF TONGUE, 10/31/17) PATIENT UNABLE TO TAKE ANY OTHER MEDICATION IN SAME FAMILY LISINOPRIL metformin (Verified Allergy, Severe, NAUSEA, 10/31/17) quinapril (Unverified Allergy, Severe, angioedema, 10/31/17) diclofenac (Unverified Allergy, Intermediate, Swelling, 10/31/17) PATIENT UNSURE WHICH NSAID CAUSED TONGUE SWELLING etodolac (Unverified Allergy, Intermediate, Swelling, 10/31/17) PATIENT UNSURE WHICH NSAID CAUSED TONGUE SWELLING flurbiprofen (Unverified Allergy, Intermediate, Swelling, 10/31/17) PATIENT UNSURE WHICH NSAID CAUSED TONGUE SWELLING ibuprofen (Unverified Allergy, Intermediate, Swelling, 10/31/17) PATIENT UNSURE WHICH NSAID CAUSED TONGUE SWELLING indomethacin (Unverified Allergy, Intermediate, Swelling, 10/31/17) PATIENT UNSURE WHICH NSAID CAUSED TONGUE SWELLING ketoprofen (Unverified Allergy, Intermediate, Swelling, 10/31/17) PATIENT UNSURE WHICH NSAID CAUSED TONGUE SWELLING ketorolac (Unverified Allergy, Intermediate, Swelling, 10/31/17) PATIENT UNSURE WHICH NSAID CAUSED TONGUE SWELLING morphine (Unverified Allergy, Intermediate, ITCHING, 10/31/17) PT DENIES naproxen (Unverified Allergy, Intermediate, Swelling, 10/31/17) PATIENT UNSURE WHICH NSAID CAUSED TONGUE SWELLING ondansetron (Unverified Allergy, Intermediate, ITCHING, 10/31/17) PT DENIES oxaprozin (Unverified Allergy, Intermediate, Swelling, 10/31/17) PATIENT UNSURE WHICH NSAID CAUSED TONGUE SWELLING Active Ordered Medications Current Medications Medications (Trade) Dose Ordered Sig/Brian Route Start Time Stop Time Status Last Admin (NS Flush) 2 ml UNSCH PRN IV FLUSH 10/31/17 16:00 (NS Flush) 2 ml BID IV FLUSH 10/31/17 21:00 11/02/17 08:00 (Tylenol) 650 mg Q4H PRN PO 10/31/17 16:00 (Narcan Inj) 0.4 mg UNSCH PRN IV PUSH 10/31/17 16:00 ([place]-Colace) 1 tab BID PO 10/31/17 21:00 11/02/17 08:07 (Milk Of Magnesia Liq) 30 ml Q12H PRN PO 10/31/17 16:00 (Dulcolax Supp) 10 mg DAILY PRN RECTAL 10/31/17 16:00 (D50w (Vial) Inj) 50 ml UNSCH PRN IV PUSH 10/31/17 16:45 (Glucagon Inj) 1 mg UNSCH PRN OTHER 10/31/17 16:45 (NovoLOG SUPPLEMENTAL SCALE) 1 ACHS SLIDING SCALE SQ 10/31/17 17:00 11/01/17 16:21 (Synthroid) 112 mcg DAILY@0600 PO 11/01/17 06:00 11/02/17 06:34 (Procardia Xl) 30 mg DAILY PO 11/01/17 09:00 (Ditropan) 5 mg Q12HR PO 10/31/17 21:00 11/02/17 08:07 ([place] 5-325 Mg) 1 tab Q4H PRN PO 10/31/17 16:45 11/02/17 08:08 (Dilaudid Pf Inj) 0.5 mg Q4H PRN IV PUSH 10/31/17 16:45 (Claritin) 10 mg DAILY PO 11/01/17 09:00 11/02/17 08:07 (Protonix) 40 mg DAILY PO 11/01/17 09:00 11/02/17 08:07 Lactated Ringer's 1,000 ml @ 30 mls/hr Q24H PRN IV 11/01/17 11:15 11/04/17 11:14 11/02/17 08:40 Sodium Chloride 500 ml @ 30 mls/hr [id number] PRN IV 11/01/17 11:15 11/04/17 11:14 (Lopressor) 25 mg MILLINERY TEACHER PRN PO 11/01/17 11:15 11/04/17 11:14 (Betadine 5% Antisepsis Kit) 1 applic MILLINERY TE[employer]ER PRN EACH NARE 11/01/17 11:15 11/04/17 11:14 (Chlorhexidine 2% Cloth) 3 pack [employer]ILLIN[employer] TE[employer]ER PRN TOPICAL 11/01/17 11:15 11/04/17 11:14 Physical Exam Vital Signs Vital Signs Date Time Temp Pulse Resp B/P (MAP) Pulse Ox O2 Delivery O2 Flow Rate FiO2 11/02/17 14:53 92 21 11/02/17 12:00 97.9 48 18 126/59 (81) 93 11/02/17 10:50 98.0 59 16 112/59 (76) 98 11/02/17 08:39 98.0 55 18 131/63 (85) 93 11/02/17 04:15 98.2 66 19 115/63 (80) 98 11/02/17 00:00 97.0 59 16 112/60 (77) 98 11/01/17 21:15 98.2 53 17 115/56 (75) 94 11/01/17 17:38 93 21 11/01/17 16:00 98.0 59 18 126/56 (79) 90 Laboratory Laboratory Tests Test 11/02/17 06:10 White Blood Count 7.1 Red Blood Count 4.87 Hemoglobin 14.3 Hematocrit 43.9 Mean Corpuscular Volume 90.2 Mean Corpuscular Hemoglobin 29.4 Mean Corpuscular Hemoglobin Concent 32.6 Red Cell Distribution Width 14.3 Platelet Count 109 Mean Platelet Volume 10.4 Neutrophils (%) (Auto) 71.4 Lymphocytes (%) (Auto) 17.9 Monocytes (%) (Auto) 7.4 Eosinophils (%) (Auto) 2.5 Basophils (%) (Auto) 0.8 Neutrophils # (Auto) 5.1 Lymphocytes # (Auto) 1.3 Monocytes # (Auto) 0.5 Eosinophils # (Auto) 0.2 Basophils # (Auto) 0.1 CBC Comment DIFF FINAL Differential Comment Blood Urea Nitrogen 14 Creatinine 1.04 Random Glucose 134 Calcium Level 8.8 Sodium Level 142 Potassium Level 3.3 Chloride Level 104 Carbon Dioxide Level 28.5 Anion Gap 10 Estimat Glomerular Filtration Rate 50 Result Diagram: 11/02/17 0610 11/02/17 0610 Delmar,Chava YOUNG November 02, 2017 15:17
[2017-11-02] MEDS ORDERED: FURO20TA PO (15:53)
[2017-11-02] MEDS ORDERED: POTASSIUM CHLORIDE 10 MEQ CONTROLLED RELEASE TAB PO ONE (16:00)
--- NOTE | 2017-11-02 16:15 | HHI.PR ---
Subjective Remarks Pt underwent evaluation with EUS today She is feeling well after the procedure and feels stable to discharge to home. Objective Vitals Vital Signs Date Time Temp Pulse Resp B/P (MAP) Pulse Ox O2 Delivery O2 Flow Rate FiO2 11/02/17 14:53 92 21 11/02/17 12:00 97.9 48 18 126/59 (81) 93 11/02/17 10:50 98.0 59 16 112/59 (76) 98 11/02/17 08:39 98.0 55 18 131/63 (85) 93 11/02/17 04:15 98.2 66 19 115/63 (80) 98 11/02/17 00:00 97.0 59 16 112/60 (77) 98 11/01/17 21:15 98.2 53 17 115/56 (75) 94 11/01/17 17:38 93 21 Result Diagram: 11/02/17 0610 11/02/17 0610 Other Results Laboratory Tests Test 10/31/17 16:40 11/01/17 07:50 11/01/17 13:00 11/01/17 14:00 Tumor Marker Alpha Fetoprotein 2.7 NG/ML Carcinoembryonic Antigen 3.3 NG/ML CA 19-9 Antigen 828.1 U/ML White Blood Count 7.1 TH/MM3 Red Blood Count 4.90 MIL/MM3 Hemoglobin 14.5 GM/DL Hematocrit 43.9 % Mean Corpuscular Volume 89.5 FL Mean Corpuscular Hemoglobin 29.7 PG Mean Corpuscular Hemoglobin Concent 33.1 % Red Cell Distribution Width 14.7 % Platelet Count 105 TH/MM3 Mean Platelet Volume 9.8 FL Neutrophils (%) (Auto) 66.3 % Lymphocytes (%) (Auto) 22.5 % Monocytes (%) (Auto) 7.5 % Eosinophils (%) (Auto) 2.8 % Basophils (%) (Auto) 0.9 % Neutrophils # (Auto) 4.7 TH/MM3 Lymphocytes # (Auto) 1.6 TH/MM3 Monocytes # (Auto) 0.5 TH/MM3 Eosinophils # (Auto) 0.2 TH/MM3 Basophils # (Auto) 0.1 TH/MM3 CBC Comment DIFF FINAL Differential Comment Blood Urea Nitrogen 11 MG/DL Creatinine 0.83 MG/DL Random Glucose 91 MG/DL Total Protein 5.6 GM/DL Albumin 2.7 GM/DL Calcium Level 8.4 MG/DL Alkaline Phosphatase 75 U/L Aspartate Amino Transf (AST/SGOT) 20 U/L Alanine Aminotransferase (ALT/SGPT) 16 U/L Total Bilirubin 0.5 MG/DL Sodium Level 142 MEQ/L Potassium Level 3.4 MEQ/L Chloride Level 103 MEQ/L Carbon Dioxide Level 31.4 MEQ/L Anion Gap 8 MEQ/L Estimat Glomerular Filtration Rate 65 ML/MIN Prothrombin Time 9.8 SEC Prothromb Time International Ratio 1.0 RATIO Urine Color YELLOW Urine Turbidity HAZY Urine pH 6.5 Urine Specific [place] 1.018 Urine Protein TRACE mg/dL Urine Glucose (UA) NEG mg/dL Urine Ketones NEG mg/dL Urine Occult Blood NEG Urine Nitrite NEG Urine Bilirubin NEG Urine Urobilinogen LESS THAN 2.0 MG/DL Urine Leukocyte Esterase SMALL Urine RBC 1 /hpf Urine WBC 5 /hpf Urine Squamous Epithelial Cells 5 /hpf Urine Transitional Epithelial Cells <1 /hpf Microscopic Urinalysis Comment CULT NOT INDICATED Test 11/02/17 06:10 White Blood Count 7.1 TH/MM3 Red Blood Count 4.87 MIL/MM3 Hemoglobin 14.3 GM/DL Hematocrit 43.9 % Mean Corpuscular Volume 90.2 FL Mean Corpuscular Hemoglobin 29.4 PG Mean Corpuscular Hemoglobin Concent 32.6 % Red Cell Distribution Width 14.3 % Platelet Count 109 TH/MM3 Mean Platelet Volume 10.4 FL Neutrophils (%) (Auto) 71.4 % Lymphocytes (%) (Auto) 17.9 % Monocytes (%) (Auto) 7.4 % Eosinophils (%) (Auto) 2.5 % Basophils (%) (Auto) 0.8 % Neutrophils # (Auto) 5.1 TH/MM3 Lymphocytes # (Auto) 1.3 TH/MM3 Monocytes # (Auto) 0.5 TH/MM3 Eosinophils # (Auto) 0.2 TH/MM3 Basophils # (Auto) 0.1 TH/MM3 CBC Comment DIFF FINAL Differential Comment Blood Urea Nitrogen 14 MG/DL Creatinine 1.04 MG/DL Random Glucose 134 MG/DL Calcium Level 8.8 MG/DL Sodium Level 142 MEQ/L Potassium Level 3.3 MEQ/L Chloride Level 104 MEQ/L Carbon Dioxide Level 28.5 MEQ/L Anion Gap 10 MEQ/L Estimat Glomerular Filtration Rate 50 ML/MIN Imaging Last 72 hours Impressions Abdomen/Pelvis CT 10/31/17 1244 Signed Impressions: CONCLUSION: 1. There is a low-density mass within the pancreatic body measuring approximat farida 3.8 cm. The imaging features are suspicious for a pancreatic neoplasm. Ther e is associated small volume of free fluid in the abdomen and pelvis along with stranding within the omentum suspicious for peritoneal disease. No liver lesio ns are identified. 2. The pancreas lesion is encasing and narrowing the splenic artery and occlud ing the splenic vein. As a result, there are perigastric collateral blood vesse ls. 3. Arising from the right mid kidney is a complex 2 cm lesion representing eit her a complex cystic lesion or solid mass/neoplasm. At some point this ideally should be further characterized. 4. Nonacute findings include severe atherosclerotic disease with prior endolum inal stent graft treatment of an abdominal aortic aneurysm, 5 mm nonobstructing left renal stone, and mild enlargement of the common bile duct in this patient post cholecystectomy. Objective Remarks General: NAD, AAOx3 Chest: CTA Cardiac: Regular Abd: +BS, soft ND/NT Ext: No edema A/P Problem List: (1) Pancreatic mass ICD Codes: K86.9 - Disease of pancreas, unspecified Status: Acute Plan: 1. 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 - CT abd/pelvis on 10/31: 1. There is a low-density mass within the pancreatic body measuring approximately 3.8 cm. The imaging features are suspicious for a pancreatic neoplasm. There is associated small volume of free fluid in the abdomen and pelvis along with stranding within the omentum suspicious for peritoneal disease. No liver lesions are identified. 2. The pancreas lesion is encasing and narrowing the splenic artery and occluding the splenic vein. As a result, there are perigastric collateral blood vessels. 3. Arising from the right mid kidney is a complex 2 cm lesion representing either a complex cystic lesion or solid mass/neoplasm. At some point this ideally should be further characterized. 4. Nonacute findings include severe atherosclerotic disease with prior endoluminal stent graft treatment of an abdominal aortic aneurysm, 5 mm nonobstructing left renal stone, and mild enlargement of the common bile duct in this patient post cholecystectomy. - GI was consulted - Pt underwent evaluation with EUS with FNA on 11/02/17 which noted an ill- defined hypoechoic mass mainly in the pancreatic body that seems to be invading the splenic vein FNA was performed with good return. No obvious lymphadenopathy was noted - General Surgery was consulted but its not clear if the patient would have operable process with vascular involvement. - Case discussed with Dr. Jacobsen and with Dr. Rosales on 11/02 and pt is cleared for discharge from their standpoint. - Appt scheduled for 11/07/17 @ 10:00AM at [facility] in [place] with Dr. Lopez for pathology results from the biopsy - She can be referred to Oncology if biopsy is positive for malignancy. - Pt will need to followup with Dr. Jacobsen in 2 weeks - Pt will need to followup with her PCP, Dr. Donahue, in 1 week, call for that appt 2. dm 2 3. gerd 4. htn 5. hypothyroidism 6. cad (2) Hypertension ICD Codes: I10 - Essential (primary) hypertension Status: Chronic Plan: Continue medication as tolerated (3) Hyperlipidemia ICD Codes: E78.5 - Hyperlipidemia, unspecified Status: Chronic (4) GERD (gastroesophageal reflux disease) ICD Codes: K21.9 - Gastro-esophageal reflux disease without esophagitis Status: Chronic Plan: Continue PPI (5) Diabetes with neurologic complications ICD Codes: E11.49 - Type 2 diabetes mellitus with other diabetic neurological complication Status: Chronic Problem Qualifiers (1) Hypertension: Qualified Codes: I10 - Essential (primary) hypertension (2) Diabetes with neurologic complications: Ella Valencia November 02, 2017 16:15
--- NOTE | 2017-11-02 16:19 | HHI.FF ---
Face to Face Verification Diagnosis: (1) Abdominal pain (2) Hypertension (3) Hyperlipidemia (4) GERD (gastroesophageal reflux disease) (5) Diabetes with neurologic complications (6) Pancreatic mass Physical Therapy Order: Evaluate and Treat Home Health Nursing Order: Signs/symptoms of disease process Nursing assessment with vital signs I have seen patient Shahana Martini on 11/02/17. My clinical findings support the need for the requested home health care services because: Deconditioned w/ increased weakness I certify that my clinical findings support that this patient is homebound because: Unsteady gait/balance Ella Valencia November 02, 2017 16:19 Devin Briseno MD Nov 03, 2017 10:33
[2017-11-03 00:22] VITALS: BP 124/66; PULSE 55; RESP 18; TEMP 98.2; O2SAT 94
[2017-11-03] MEDS: ACETAMINOPHEN/HYDROcodone 325 MG/5 MG TAB PO PRN (04:41)
[2017-11-03 04:59] VITALS: BP 123/59; PULSE 73; RESP 18; TEMP 98; O2SAT 93
[2017-11-03] MEDS: LEVOTHYROXINE SODIUM 112 MCG TAB PO SCH (05:36)
[2017-11-03] MEDS: INSULIN ASPART SUPPLEMENTAL SCALE SQ SCH (07:57)
[2017-11-03 08:17] VITALS: PULSE 62
[2017-11-03] MEDS: DOCUSATE SODIUM 50 MG/SENNA 8.6 MG TAB PO SCH (08:20)
[2017-11-03] MEDS: NIFEdipine 30 MG SUSTAINED RELEASE TAB PO SCH (08:20)
[2017-11-03] MEDS: LORATADINE 10 MG TAB PO SCH (08:20)
[2017-11-03] MEDS: PANTOPRAZOLE SOD 40 MG DELAYED RELEASE TAB PO SCH (08:20)
[2017-11-03] MEDS: OXYBUTYNIN CHLORIDE 5 MG TAB PO SCH (08:20)
[2017-11-03] MEDS: SODIUM CHLORIDE 0.9% FLUSH 10 ML FLUSH IV FLUSH SCH (08:21)
[2017-11-03 08:31] VITALS: BP 151/68; PULSE 59; RESP 18; TEMP 98.6; O2SAT 95
[2017-11-03 08:36] LABS: HEMATOCRIT 42.9 % (35.0-46.0); HEMOGLOBIN 14.2 GM/DL (11.6-15.3); MEAN CELL VOLUME 90.2 FL (80.0-100.0); MEAN CORPUSCULAR HEMOGLOBIN 29.9 PG (27.0-34.0); MEAN CORPUSCULAR HGB CONC 33.1 % (32.0-36.0); MEAN PLATELET VOLUME 9.9 FL (7.0-11.0); PLATELET COUNT 106 TH/MM3 (150-450); RED BLOOD COUNT 4.76 MIL/MM3 (4.00-5.30); RED CELL DISTRIBUTION WIDTH 14.5 % (11.6-17.2); WHITE BLOOD COUNT 6.8 TH/MM3 (4.0-11.0)
--- NOTE | 2017-11-03 10:48 | HHI.DS ---
Discharge Summary Admission Date October 31, 2017 at 14:57 Discharge Date: Nov 03, 2017 Admitting Diagnosis ABDOMINAL PAIN, PANCREATIC MASS (1) Pancreatic mass Diagnosis: Principal ICD Codes: K86.9 - Disease of pancreas, unspecified Status: Acute (2) Hypertension Diagnosis: Secondary ICD Codes: I10 - Essential (primary) hypertension Status: Chronic (3) Hyperlipidemia Diagnosis: Secondary ICD Codes: E78.5 - Hyperlipidemia, unspecified Status: Chronic (4) GERD (gastroesophageal reflux disease) Diagnosis: Secondary ICD Codes: K21.9 - Gastro-esophageal reflux disease without esophagitis Status: Chronic (5) Diabetes with neurologic complications Diagnosis: Secondary ICD Codes: E11.49 - Type 2 diabetes mellitus with other diabetic neurological complication Status: Chronic Brief History This 87-year-old female is complaining of left lower quadrant pain for the last 4 days she went to see Dr. Donahue and was told she had a colon infection. She was put on Keflex which she finished yesterday. She reportedly saw Dr. Donahue in his office this morning and was sent to the ER for further evaluation and CT scan. The last few days been having occasional diarrhea alternating with constipation. She has been having some left lower quadrant pain with no vomiting, but less appetite. The pain is aggravated by movement. She has a history of cholecystectomy. She was treated for breast cancer 4 years ago. She had a lumpectomy followed by radiation treatment. She was told that chemotherapy was not needed at the time. She does smoke cigarettes and has done so for nearly 70 years. She drinks rarely. She says the pain she is having is quite severe at times but seems controlled with Dilaudid she received earlier. It is aggravated by getting up and moving when she sits she is pain is not too bad. The pain has been bad for the last 4 days. She lives alone. CT abdomen pelvis done earlier today revealed 3.8 cm mass in the body of the pancreas narrowing splenic artery and occluding the splenic vein with some perigastric vessel engorgement. It is been requested the patient be transferred to the main hospital for further assessment. She has a long family history of various cancers. CBC/BMP: 11/03/17 0610 11/02/17 0610 Significant Findings Laboratory Tests Test 10/31/17 12:30 10/31/17 16:40 11/01/17 07:50 11/01/17 13:00 Platelet Count 115 TH/MM3 (150-450) 105 TH/MM3 (150-450) Neutrophils (%) (Auto) 73.5 % (16.0-70.0) Basophils (%) (Auto) 4.3 % (0.0-2.0) Basophils # (Auto) 0.4 TH/MM3 (0-0.2) Random Glucose 150 MG/DL (74-106) Total Protein 6.2 GM/DL (6.4-8.2) 5.6 GM/DL (6.4-8.2) Albumin 2.9 GM/DL (3.4-5.0) 2.7 GM/DL (3.4-5.0) Potassium Level 3.2 MEQ/L (3.5-5.1) 3.4 MEQ/L (3.5-5.1) Estimat Glomerular Filtration Rate 53 ML/MIN (>89) 65 ML/MIN (>89) Lipase 62 U/L (73-393) CA 19-9 Antigen 828.1 U/ML (0.0-35.0) Calcium Level 8.4 MG/DL (8.5-10.1) Test 11/01/17 14:00 11/02/17 06:10 11/03/17 06:10 Urine Turbidity HAZY (CLEAR) Urine Leukocyte Esterase SMALL (NEG) Platelet Count 109 TH/MM3 (150-450) 106 TH/MM3 (150-450) Neutrophils (%) (Auto) 71.4 % (16.0-70.0) Creatinine 1.04 MG/DL (0.50-1.00) Random Glucose 134 MG/DL (74-106) Potassium Level 3.3 MEQ/L (3.5-5.1) Estimat Glomerular Filtration Rate 50 ML/MIN (>89) PE at Discharge General: NAD, AAOx3 Chest: CTA Cardiac: Regular Abd: +BS, soft ND/NT Ext: No edema Hospital Course A/P Problem List: (1) Pancreatic mass ICD Codes: K86.9 - Disease of pancreas, unspecified Status: Acute Plan: 1. 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 - CT abd/pelvis on 10/31: 1. There is a low-density mass within the pancreatic body measuring approximately 3.8 cm. The imaging features are suspicious for a pancreatic neoplasm. There is associated small volume of free fluid in the abdomen and pelvis along with stranding within the omentum suspicious for peritoneal disease. No liver lesions are identified. 2. The pancreas lesion is encasing and narrowing the splenic artery and occluding the splenic vein. As a result, there are perigastric collateral blood vessels. 3. Arising from the right mid kidney is a complex 2 cm lesion representing either a complex cystic lesion or solid mass/neoplasm. At some point this ideally should be further characterized. 4. Nonacute findings include severe atherosclerotic disease with prior endoluminal stent graft treatment of an abdominal aortic aneurysm, 5 mm nonobstructing left renal stone, and mild enlargement of the common bile duct in this patient post cholecystectomy. - GI was consulted - Pt underwent evaluation with EUS with FNA on 11/02/17 which noted an ill- defined hypoechoic mass mainly in the pancreatic body that seems to be invading the splenic vein FNA was performed with good return. No obvious lymphadenopathy was noted - General Surgery was consulted but its not clear if the patient would have operable process with vascular involvement. - Case discussed with Dr. Jacobsen and with Dr. Rosales on 11/02 and pt is cleared for discharge from their standpoint. - Appt scheduled for 11/07/17 @ 10:00AM at [facility] in [place] with Dr. Lopez for pathology results from the biopsy - She can be referred to Oncology if biopsy is positive for malignancy. - Pt will need to followup with Dr. Jacobsen in 2 weeks - Pt will need to followup with her PCP, Dr. Donahue, in 1 week, call for that appt dc on 11/02 held due to no ride from family despite being given notice the day prior. discussed with CM...d/c today and arrange ride if needed. 2. dm 2 3. gerd 4. htn 5. hypothyroidism 6. cad (2) Hypertension ICD Codes: I10 - Essential (primary) hypertension Status: Chronic Plan: Continue medication as tolerated (3) Hyperlipidemia ICD Codes: E78.5 - Hyperlipidemia, unspecified Status: Chronic (4) GERD (gastroesophageal reflux disease) ICD Codes: K21.9 - Gastro-esophageal reflux disease without esophagitis Status: Chronic Plan: Continue PPI (5) Diabetes with neurologic complications ICD Codes: E11.49 - Type 2 diabetes mellitus with other diabetic neurological complication Status: Chronic Pt Condition on Discharge: Stable Discharge Disposition: Disch w/ Home Health Serv Discharge Instructions DIET: Follow Instructions for: Diabetic Diet Activities you can perform: Regular-No Restrictions Follow up Referrals: Appointment for Follow Up Gastroenterology - 11/07/17 with Mahesh Lopez MD Appt scheduled for 11/07/17 @ 10:00AM at [facility] in [place] with Dr. Lopez. PCP Follow-up - [address] Donahue PCP Follow-up Surgical - 2 Weeks with Chava Jacobsen MD Surgical Changed Medications: Furosemide (Furosemide) 20 Mg Tab 20 MG PO DAILY for Prevent Heart Failure, #30 TAB 0 Refills (Medication details modified) resume on 11/04/17 if systolic blood pressure is over 120 Continued Medications: Aspirin (Aspirin) 325 Mg Tab 325 MG PO DAILY for Blood Clot Prevention, #30 TAB 0 Refills Biotin (Biotin) 5 Mg Tab 5 MG PO DAILY for Nutritional Supplement, #1 BOTTLE Calcium Carbonate/Vitamin D3 (Calcium 600 + Vit D 400 Softgl) 600 Mg-400 Capsule 1 CAP PO DAILY for Nutritional Supplement Cinnamon (Eql Cinnamon) 500 Mg Cap 1000 MG PO DAILY for Nutritional Supplement, #1 BOTTLE Cyanocobalamin Inj (Cyanocobalamin Inj) 1,000 Mcg/Ml Inj 1000 MCG SQ Q30D for Nutritional Supplement, #1 VIAL 0 Refills Glimepiride (Glimepiride) 1 Mg Tab 1 MG PO DAILY for Blood Sugar Management, #30 TAB 0 Refills Take with breakfast or first main meal Hydrocodone/Acetaminophen (Hydrocodone-Acetamin 5-325 mg) 5 Mg-325 Mg Tablet 1-2 TAB PO Q4HR PRN for PAIN SCALE 1 TO 10 Levothyroxine (Levothyroxine) 112 Mcg Tab 112 MCG PO DAILY for Thyroid, #30 TAB 0 Refills Loratadine (Claritin) 10 Mg Cap 10 MG PO DAILY for Allergy Management, CAP 0 Refills Oxybutynin (Ditropan) 5 Mg Tab 5 MG PO Q12HR for Urinary Symptom Managemen, #60 TAB 0 Refills Pravastatin (Pravastatin) 40 Mg Tab 40 MG PO DAILY for Cholesterol Management, #30 TAB 0 Refills Devin Briseno MD Nov 03, 2017 10:48
== END 2017-11-03 10:58 | disposition home health service (06) | DRG 436 ==
LOC: PHEFT 11:31 → PHEDA 14:57 → N05A 18:08
PROVIDERS: ADMIT Hospitalist; ATTEND Hospitalist
PROC: 0FBG3ZX Excision of Pancreas, Percutaneous Approach, Diagnostic (ICD-10-PCS; principal; 2017-11-02 09:42)
DX: C25.9 Malignant neoplasm of pancreas, unspecified (principal); C79.01 Secondary malignant neoplasm of right kidney and renal pelvis; E11.40 Type 2 diabetes mellitus with diabetic neuropathy, unspecified; I10 Essential (primary) hypertension; K21.9 Gastro-esophageal reflux disease without esophagitis; N32.81 Overactive bladder; E78.00 Pure hypercholesterolemia, unspecified; E03.9 Hypothyroidism, unspecified; I25.10 Atherosclerotic heart disease of native coronary artery without angina pectoris; G89.29 Other chronic pain; E11.49 Type 2 diabetes mellitus with other diabetic neurological complication; E78.5 Hyperlipidemia, unspecified; M54.9 Dorsalgia, unspecified; F17.201 Nicotine dependence, unspecified, in remission; Z85.3 Personal history of malignant neoplasm of breast; Z79.82 Long term (current) use of aspirin; Z79.891 Long term (current) use of opiate analgesic; Z79.899 Other long term (current) drug therapy; Z92.3 Personal history of irradiation
CPT/HCPCS: 43242; 74177; 80048; 80053; 81001; 82105; 82378; 82948; 83690; 85025; 85027; 85610; 86301; 88173; 93005; 96361; 96365; 96375; J1170; J1815; J3480; J7030; J7120; Q9967